=== PATIENT | female | born 1930 | race Caucasian/White ===

== ENCOUNTER 2016-12-11 15:31 | Inpatient (IN) | payer OTHER ==
[~2016-12-11] VITALS: Ht 165.1 cm; Wt 67.1 kg
[~2016-12-11 15:31] MED LIST: ACETAMINOPHEN325 M1 PO; ACIDOPHILUS1 EACH PO; ASPERCREME 1141.7 GM; ASPIRIN EC81 M1 PO; AZITHROMYCIN250 MG PO; BETIMOL10 ML INTRAOCULR; BETIMOL15 ML; BICARSIM80 MG PO; CENTRUM COMPLE1 EACH PO; CENTRUM SILVER1 EAC4 PO; CEPACOL SORE T1 EAC7 PO; CLOBETASOL PROP59 ML; CLOTRIMAZOLE-BE15 GM; DOXYCYCLINE HY100 MG PO; FISH OIL 1,001000 M2 PO; FISHOIL PO; FLAGYL500 MG PO; FLOMAX0.4 MG PO; FLORANEX TABLE1 EACH PO; GLUCOSAMINE CH1 EAC7; HYDROCHLOROTH12.5 M1 PO; HYDROCHLOROTH12.5 MG PO; KLOR-CON 10 ER10 MEQ; LOPERAMIDE 2 MG2 M1 PO; MACROBID 100 M100 M1 PO; MIRALAX17 GM PO; MIRALAX255 GM; MYRBETRIQ25 MG; OS-CAL 500+D C1 EACH PO; PHENERGAN 25 MG25 M1 PO; PREDNISONE 20 M20 MG PO; PRILOSEC40 MG; PROTONIX40 M4 PO; TESSALON PERLE100 MG PO; TRIAMCINOLONE A80 G2 TOP; VALACYCLOVIR500 MG PO; VALIUM5 MG PO; VENTOLIN HFA 1818 GM INH; VITAMIN C120 GM PO; VITAMIN D3400 UNIT PO; ZANTAC 7575 MG PO; ZOCOR 10 MG TAB10 MG PO
[2016-12-11 15:33] VITALS: BP 143/80
[2016-12-11 16:21] LABS: URINE BLOOD 3+ (Negative); URINE COLOR RED; URINE GLUCOSE-RANDOM* NEGATIVE (Negative); URINE KETONES NEGATIVE (Negative); URINE PROTEIN (DIPSTICK) 2+ (Negative); URINE UROBILINOGEN 0.2 E.U./dl (0.2-1.0)
[2016-12-11 16:23] LABS: URINE LEUKOCYTES-REFLEX 2+ (Negative)
[2016-12-11 16:24] LABS: ICTOTEST (BILI CONFIRMATORY) Negative (Negative); URINE BILIRUBIN NEGATIVE (Negative)
[2016-12-11 16:42] LABS: CASTS None Seen /LPF (None Seen); CRYSTALS None Seen /LPF (None Seen); SQUAMOUS 4-10 Moderate /LPF (0-3)
[2016-12-11 16:43] LABS: URINE RBC >20 Many /HPF (0-2); URINE WBC-REFLEX >25 Many /HPF (0-5)
[2016-12-11 17:00] LABS: HEMOGLOBIN 12.4 gm/dL (12.0-15.0); MCH 32.5 pg (26.0-34.0); MCHC 34.5 g/dL (28.0-37.0); MCV 94.2 fL (80.0-100.0); RBC 3.83 mil/uL (4.20-5.00); RDW 12.9 % (10.5-14.5); WBC 8.8 thou/uL (4.0-11.0)
[2016-12-11 17:09] LABS: CREATININE 0.9 mg/dL (0.6-1.0); POTASSIUM 3.7 mmol/L (3.5-5.1)
[2016-12-11 19:38] VITALS: BP 117/67
[2016-12-12 03:35] VITALS: BP 125/53
[2016-12-12 06:38] LABS: HEMATOCRIT 35.6 % (37.0-47.0); HEMOGLOBIN 12.5 gm/dL (12.0-15.0); MCH 32.8 pg (26.0-34.0); MCV 93.8 fL (80.0-100.0); RBC 3.79 mil/uL (4.20-5.00); RDW 13.4 % (10.5-14.5); WBC 5.3 thou/uL (4.0-11.0)
[2016-12-12 06:55] LABS: CREATININE 0.8 mg/dL (0.6-1.0); POTASSIUM 3.4 mmol/L (3.5-5.1)
[2016-12-12 07:17] VITALS: BP 121/58
[2016-12-12 15:31] VITALS: BP 115/72
[2016-12-12 20:14] VITALS: BP 145/57
[2016-12-13 04:35] VITALS: BP 131/51
[2016-12-13 07:54] LABS: CALCIUM 8.5 mg/dL (8.5-10.1); CREATININE 0.8 mg/dL (0.6-1.0); POTASSIUM 3.7 mmol/L (3.5-5.1)
[2016-12-13 08:00] VITALS: BP 153/90
[2016-12-13 15:57] VITALS: BP 127/65
[2016-12-13 20:00] VITALS: BP 140/81
[2016-12-14 03:58] VITALS: BP 146/58
[2016-12-14 08:02] VITALS: BP 163/69
[2016-12-14 20:00] VITALS: BP 141/64
[2016-12-15 04:00] VITALS: BP 137/56
[2016-12-15 07:52] LABS: HEMATOCRIT 36.4 % (37.0-47.0); HEMOGLOBIN 12.7 gm/dL (12.0-15.0); MCH 33.1 pg (26.0-34.0); MCV 94.7 fL (80.0-100.0); RBC 3.85 mil/uL (4.20-5.00); RDW 13.4 % (10.5-14.5); WBC 4.5 thou/uL (4.0-11.0)
[2016-12-15 08:00] VITALS: BP 141/70
[2016-12-15 08:05] LABS: CREATININE 0.8 mg/dL (0.6-1.0); POTASSIUM 3.9 mmol/L (3.5-5.1)
[2016-12-15] MEDS ORDERED: CIPRO500 MG PO (09:39)
[2016-12-15] MEDS ORDERED: COZAAR 25 MG TA25 M1 PO (09:40)
[2016-12-15 13:02] VITALS: BP 141/70
[2016-12-15 14:27] VITALS: BP 141/70
== END 2016-12-15 14:48 | disposition home health service (06) | DRG 690 ==
LOC: ER 15:31 → EROBS 18:26 → 4E 18:26 → ENTRNSPT 12-15 14:41 → EDTRNSPTSTS 12-15 14:46 → 4E 12-15 14:48
PROVIDERS: Emergency Medicine; Internal Medicine
DX: N39.0 Urinary tract infection, site not specified (principal); E87.1 Hypo-osmolality and hyponatremia; E78.00 Pure hypercholesterolemia, unspecified; I10 Essential (primary) hypertension; E78.5 Hyperlipidemia, unspecified; R33.9 Retention of urine, unspecified; R31.9 Hematuria, unspecified; Z88.8 Allergy status to other drugs, medicaments and biological substances; Z90.49 Acquired absence of other specified parts of digestive tract; Z88.2 Allergy status to sulfonamides; Z80.0 Family history of malignant neoplasm of digestive organs; Z79.82 Long term (current) use of aspirin; Z79.899 Other long term (current) drug therapy; Z23 Encounter for immunization
CPT/HCPCS: 10084

== ENCOUNTER 2017-05-06 20:07 | Inpatient (IN) | payer OTHER ==
[~2017-05-06] VITALS: Ht 162.6 cm; Wt 65.8 kg
--- NOTE | ~2017-05-06 | EKG ---
[address] [address] ELECTROCARDIOGRAM REPORT Name: AUGUSTINMYRTLE KHAN DAINA Room #: 406-P ADM IN M.R.#: [id number] Admission: 05/06/17 Attend Phys: Raymundo Hoyt MD Discharge: Date of : 28 Report #: [id number] THIS REPORT FOR: //name// [facility] ED Test Date: 2017-05-06 Test Time: 20:53:10 Pat Name: MYRTLE RUFFIN Department: Room: 406 Gender: F Manager Balance: TAYLER : 1930 Requested By: Ruth Dillon Order Number: [id number] MD: Hiram Marquez Measurements Intervals [place] Rate: 101 P: 68 NV: 138 QRS: 56 QRSD: 88 T: 38 QT: 345 QTc: 448 Interpretive Statements Sinus tachycardia Compared to ECG 04/08/2016 17:02:44 Sinus rhythm no longer present Electronically Signed On 05-07-2017 13:24:01 [employer] SERVICES COORDINATOR by Hiram Marquez [email or web address] <ELECTRONICALLY SIGNED> By: Hiram Marquez MD 05/07/17 1324 52 52 Hiram Marquez MD /KARIN
--- NOTE | ~2017-05-06 | CNG ---
[facility] [place] [address] CYTO-NONGYN REPORT PROCEDURE Name: MYRTLE BUI Room #: 406-P ADM IN M.R.#: [id number] Admission: 05/06/17 Date of : 28 Discharge: Report #: [id number] Path Case #: [id number] CYTOPATHOLOGY REPORT COLLECTION DATE: 05/12/2017 RECEIVED DATE: 05/12/2017 SUBMITTING PHYS: Raymundo Hoyt M.D. OTHER PHYS: Dr. So Melara CLINICAL HISTORY: Sepsis, Pneumonia, Hyponatremia, difficulty coughing up SPECIMEN(S) RECEIVED: A.Sputum * * * * * * * * * * * * FINAL DIAGNOSIS: A. Sputum: - No malignant epithelial cells identified. Pulmonary macrophages, squamous epithelial cells, acute and chronic inflammatory cells and numerous bacterial colonies are present. PATHOLOGIST: Nevaeh Horn M.D. REPORT ELECTRONICALLY SIGNED BY: Nevaeh Horn M.D. DATE/TIME: 05/13/2017 12:58 * * * * * * * * * * * * GROSS PATHOLOGY: A. Sputum: The specimen is submitted unfixed, labeled "Myrtle Bui". Received by the Cytology Department is three mL of cloudy colorless fluid. One ThinPrep slide was prepared. (mm 05.12.2017) LOG YARD MANAGER(S): ADY Ruiz[facility] INITIAL CPT CODE(S): A; 42206 Professional services performed by [facility] at [facility] [address], [place] [address] Technical services performed by [facility] at [address] [place] [address]., [address], Eugenia Pereira, [place] [address]. [facility] [address] [place] [address], [address] [facility] [address] [place] [address] CYTO-NONGYN REPORT PROCEDURE Name: MYRTLE BUIE Room #: 406-P ADM IN M.R.#: [id number] Admission: 05/06/17 Date of : 28 Discharge: Report #: [id number] Path Case #: [id number] [place] Mahm[place] [address] PHONE: [phone] DIRECTOR: Jim Longoria M.D. * * * END OF REPORT * * *
--- NOTE | ~2017-05-06 | HC ---
[facility] [place] [address] CONSULTATION Name: MYRTLE RUFFIN Room #: 406-P ADM IN M.R.#: [id number] Admission: 05/06/17 Attend Phys: Raymundo Hoyt MD Discharge: Date of : 28 Report #: [id number] THIS REPORT FOR: //name// CC: Raymundo Melara TYPE OF REPORT: Infectious diseases consultation. REASON FOR CONSULTATION: I was asked to evaluate the patient concerning bilateral patchy pulmonary infiltrates. HISTORY OF PRESENT ILLNESS: The patient is an 86-year old with underlying history of hypertension. She has an influenza-like syndrome 2 weeks ago. Unclear if she was actually diagnosed with influenza. Treated with Tamiflu. Treated with azithromycin and codeine cough syrup. She continued to have cough with minimal sputum production. She developed fever up to 104 degrees on the day of admission. Chest x-ray showed patchy pulmonary infiltrates. CT scan of the chest confirms the same. She has had no further fever. Treated with Levaquin and metronidazole. REVIEW OF SYSTEMS: The patient has had no chest pain or headache. She has had a hoarse voice. No definite pharyngitis pain. No hemoptysis. No GI or complaints other than a known neurogenic bladder requiring a suprapubic catheter several years ago. No rash. The patient has had no travel. ALLERGIES: SULFA and NITROFURANTOIN. MEDICATIONS: As noted on her MAR, which were reviewed. PAST MEDICAL HISTORY: Autoimmune hepatitis, shingles, left knee arthroscopy, lymphoma, bladder suspension surgery, cholecystectomy, hyponatremia, vertigo, UTI, hypertension, hyperlipidemia, urinary retention with suprapubic catheter. FAMILY HISTORY: Noncontributory. SOCIAL HISTORY: Nonsmoker. No significant alcohol intake. No tuberculosis exposure. 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 REVIEW OF SYSTEMS: As noted above. PHYSICAL EXAMINATION: VITAL SIGNS: Afebrile and hemodynamically stable, alert and cooperative, sitting up in her chair. Room air saturation normal. HEENT: Remarkable for dentures. She had a hoarse voice. NECK: Supple. No adenopathy. LUNGS: Few crackles in the right base posteriorly. No consolidation. HEART: Regular, without murmur. [facility] [address] [place] [address] CONSULTATION Name: MYRTLE RUFFIN Room #: 406-P [facility] IN M.R.#: [id number] Admission: 05/06/17 Attend Phys: Raymundo Hoyt MD Discharge: Date of : 28 Report #: [id number] ABDOMEN: Soft and nontender. No hepatosplenomegaly or mass. EXTREMITIES: Unremarkable other than degenerative arthritis changes. LABORATORY STUDIES: Sodium 135, potassium 3.4, bicarbonate 26 and creatinine 0.7. Liver function test normal. Hemoglobin 10.7; platelet count 315,000; WBC 7 and 70% segs. Differential unremarkable. Urine antigen negative. Viral respiratory panel pending. Urinalysis unremarkable. Urine culture, Enterococcus and pseudomonas, low colony counts. IMPRESSION: Influenza syndrome 2 weeks ago followed by development of laryngitis and patchy pulmonary infiltrates. I am suspecting post-viral pneumonitis. Other consideration would be aspiration. I doubt opportunistic infection. RECOMMENDATIONS: We will continue IV antibiotic therapy with Levaquin. The patient is edentulous. No need for anaerobic coverage. Await sputum culture if possible. Screen for MRSA. Await video swallow. <ELECTRONICALLY SIGNED> By: Abhishek Akins MD 05/13/17 1558 [id number] Abhishek Akins MD /nt
[~2017-05-06 20:07] MED LIST changes: +ANTIVERT25 MG PO; +ASPIR 8181 M1 PO; +BETIMOL5 ML INTRAOCULR; +CALCIUM 500 +1 EAC5 PO; +CENTRUM ADULTS1 EACH PO; +CIPRO500 MG PO; +CLOBETASOL PROP50 M1 TOP; +COZAAR 25 MG TA25 M1 PO; +KEFLEX500 M1 PO; +VITAMIN D1000 UNI1 PO; +VITAMINC500 PO; +ZOCOR20 MG PO
[2017-05-06 20:09] VITALS: BP 165/78
[2017-05-06 21:17] LABS: HEMATOCRIT 34.7 % (37.0-47.0); HEMOGLOBIN 11.8 gm/dL (12.0-15.0); MCH 31.6 pg (26.0-34.0); MCHC 34.1 g/dL (28.0-37.0); MCV 92.6 fL (80.0-100.0); PLATELET COUNT 228 thou/uL (150-400); RBC 3.74 mil/uL (4.20-5.00); RDW 13.4 % (10.5-14.5); WBC 12.4 thou/uL (4.0-11.0)
[2017-05-06 21:24] LABS: ANION GAP 7 mmol/L (7-16); BUN 14 mg/dL (7-18); CALCIUM 8.6 mg/dL (8.5-10.1); CHLORIDE 95 mmol/L (98-107); CO2 26 mmol/L (21-32); CREATININE 0.8 mg/dL (0.6-1.0); GLUCOSE 120 mg/dL (74-106); POTASSIUM 3.6 mmol/L (3.5-5.1); SODIUM 128 mmol/L (136-145)
[2017-05-06 21:28] LABS: URINE BILIRUBIN NEGATIVE (Negative); URINE BLOOD 1+ (Negative); URINE CLARITY CLEAR; URINE COLOR YELLOW; URINE GLUCOSE-RANDOM* NEGATIVE (Negative); URINE KETONES NEGATIVE (Negative); URINE LEUKOCYTES 2+ (Negative); URINE NITRITE NEGATIVE (Negative); URINE PROTEIN (DIPSTICK) NEGATIVE (Negative); URINE SPECIFIC GRAVITY <= 1.005 (1.005-1.035)
[2017-05-06 21:33] LABS: ALBUMIN 2.5 g/dL (3.4-5.0); SGOT 29 U/L (15-37); SGPT 41 U/L (30-65); TOTAL BILIRUBIN 0.8 mg/dL (<0.1-1.0); TOTAL PROTEIN 6.8 g/dL (6.4-8.2); TROPONIN-I < 0.04 ng/mL (<0.06)
[2017-05-06 21:45] LABS: CASTS None Seen /LPF (None Seen); SQUAMOUS None Seen /LPF (0-3)
[2017-05-06 21:46] LABS: BACTERIA None Seen /HPF (None Seen); CRYSTALS None Seen /LPF (None Seen); URINE RBC 0-2 Rare /HPF (0-2); URINE WBC 6-15 Few /HPF (0-5); WBC CLUMPS Few (None Seen)
[2017-05-06 21:47] LABS: ABSOLUTE NEUTROPHILS 10.7 thou/uL (1.4-8.2); ANISOCYTOSIS 1+; POLYCHROMASIA OCCASIONAL
[2017-05-06 22:58] VITALS: BP 142/57
[2017-05-06 23:25] VITALS: BP 143/57
[2017-05-07 04:00] VITALS: BP 122/56
[2017-05-07 06:04] LABS: URINE BILIRUBIN NEGATIVE (Negative); URINE BLOOD 2+ (Negative); URINE CLARITY CLEAR; URINE COLOR YELLOW; URINE GLUCOSE-RANDOM* NEGATIVE (Negative); URINE KETONES TRACE (Negative); URINE NITRITE-REFLEX NEGATIVE (Negative); URINE PROTEIN (DIPSTICK) NEGATIVE (Negative); URINE SPECIFIC GRAVITY <= 1.005 (1.005-1.035); URINE UROBILINOGEN 0.2 E.U./dl (0.2-1.0)
[2017-05-07 06:15] LABS: URINE LEUKOCYTES-REFLEX 2+ (Negative)
[2017-05-07 06:17] LABS: CASTS None Seen /LPF (None Seen); CRYSTALS None Seen /LPF (None Seen); SQUAMOUS None Seen /LPF (0-3); URINE WBC-REFLEX 0-5 Rare /HPF (0-5)
[2017-05-07 06:18] LABS: BACTERIA-REFLEX 1-9 Few /HPF (None Seen); URINE RBC 3-10 Few /HPF (0-2)
[2017-05-07 06:45] LABS: HEMATOCRIT 35.8 % (37.0-47.0); HEMOGLOBIN 12.1 gm/dL (12.0-15.0); MCH 31.6 pg (26.0-34.0); MCHC 33.8 g/dL (28.0-37.0); MCV 93.3 fL (80.0-100.0); RBC 3.84 mil/uL (4.20-5.00); RDW 13.6 % (10.5-14.5); WBC 9.9 thou/uL (4.0-11.0)
[2017-05-07 06:55] LABS: CALCIUM 8.7 mg/dL (8.5-10.1); CREATININE 0.8 mg/dL (0.6-1.0); POTASSIUM 3.5 mmol/L (3.5-5.1)
[2017-05-07 07:52] VITALS: BP 133/57
[2017-05-07 20:11] VITALS: BP 149/76
[2017-05-08 05:17] VITALS: BP 140/67
[2017-05-08 06:43] LABS: ABSOLUTE NEUTROPHILS 11.6 thou/uL (1.4-8.2); BASOPHILS 0.2 % (0.0-2.0); EOSINOPHILS 0.1 % (0.0-3.0); HEMATOCRIT 31.9 % (37.0-47.0); HEMOGLOBIN 10.8 gm/dL (12.0-15.0); LYMPHOCYTES 7.1 % (24.0-44.0); MCH 31.5 pg (26.0-34.0); MCHC 33.7 g/dL (28.0-37.0); MCV 93.3 fL (80.0-100.0); MONOCYTES 5.8 % (1.0-8.0); PLATELET COUNT 227 thou/uL (150-400); POLYS 86.8 % (36.0-66.0); RBC 3.42 mil/uL (4.20-5.00); RDW 13.2 % (10.5-14.5); WBC 13.3 thou/uL (4.0-11.0)
[2017-05-08 07:00] LABS: CALCIUM 8.1 mg/dL (8.5-10.1); CREATININE 0.8 mg/dL (0.6-1.0); PHOSPHORUS 2.7 mg/dL (2.5-4.9); POTASSIUM 3.5 mmol/L (3.5-5.1)
[2017-05-08 09:17] VITALS: BP 158/76
[2017-05-08 17:55] VITALS: BP 167/94
[2017-05-08 20:00] VITALS: BP 187/76
[2017-05-09 04:00] VITALS: BP 126/74
[2017-05-09 06:35] LABS: HEMATOCRIT 32.4 % (37.0-47.0); MCH 31.8 pg (26.0-34.0); MCV 93.4 fL (80.0-100.0); RBC 3.47 mil/uL (4.20-5.00); RDW 13.5 % (10.5-14.5)
[2017-05-09 06:47] LABS: CALCIUM 8.2 mg/dL (8.5-10.1); CREATININE 0.7 mg/dL (0.6-1.0); MAGNESIUM 1.8 mg/dL (1.8-2.4); POTASSIUM 3.5 mmol/L (3.5-5.1)
[2017-05-09 08:29] VITALS: BP 147/92
[2017-05-09 08:31] VITALS: BP 141/68
[2017-05-09 16:27] VITALS: BP 143/73
[2017-05-09 19:56] VITALS: BP 149/85
[2017-05-10 00:02] VITALS: BP 154/83
[2017-05-10 03:39] VITALS: BP 163/78
[2017-05-10 06:36] LABS: BASOPHILS 0.2 % (0.0-2.0); EOSINOPHILS 1.7 % (0.0-3.0); HEMATOCRIT 31.6 % (37.0-47.0); HEMOGLOBIN 10.7 gm/dL (12.0-15.0); LYMPHOCYTES 10.9 % (24.0-44.0); MCH 31.8 pg (26.0-34.0); MCV 93.5 fL (80.0-100.0); MONOCYTES 5.9 % (1.0-8.0); PLATELET COUNT 262 thou/uL (150-400); POLYS 81.3 % (36.0-66.0); RBC 3.38 mil/uL (4.20-5.00); RDW 13.3 % (10.5-14.5); WBC 9.9 thou/uL (4.0-11.0)
[2017-05-10 06:59] LABS: ALBUMIN 1.8 g/dL (3.4-5.0); CREATININE 0.8 mg/dL (0.6-1.0); POTASSIUM 3.1 mmol/L (3.5-5.1); TOTAL BILIRUBIN 0.7 mg/dL (<0.1-1.0); TOTAL PROTEIN 5.7 g/dL (6.4-8.2)
[2017-05-10 08:08] VITALS: BP 135/52
[2017-05-10 16:58] VITALS: BP 146/79
[2017-05-10 20:38] VITALS: BP 151/84
[2017-05-11 05:08] VITALS: BP 154/80
[2017-05-11 05:32] LABS: BASOPHILS 0.5 % (0.0-2.0); EOSINOPHILS 1.7 % (0.0-3.0); HEMATOCRIT 31.1 % (37.0-47.0); HEMOGLOBIN 10.8 gm/dL (12.0-15.0); LYMPHOCYTES 10.4 % (24.0-44.0); MCH 32.5 pg (26.0-34.0); MCHC 34.9 g/dL (28.0-37.0); MONOCYTES 5.7 % (1.0-8.0); PLATELET COUNT 281 thou/uL (150-400); POLYS 81.7 % (36.0-66.0); RBC 3.34 mil/uL (4.20-5.00); RDW 13.3 % (10.5-14.5)
[2017-05-11 05:43] LABS: CREATININE 0.7 mg/dL (0.6-1.0); MAGNESIUM 1.6 mg/dL (1.8-2.4); POTASSIUM 3.1 mmol/L (3.5-5.1)
[2017-05-11 07:43] VITALS: BP 144/55
[2017-05-11 12:09] VITALS: BP 139/67
[2017-05-11 15:00] VITALS: BP 140/72
[2017-05-11 20:00] VITALS: BP 143/55
[2017-05-12 04:00] VITALS: BP 128/64
[2017-05-12 05:53] LABS: ABSOLUTE NEUTROPHILS 4.9 thou/uL (1.4-8.2); BASOPHILS 0.6 % (0.0-2.0); EOSINOPHILS 3.1 % (0.0-3.0); HEMATOCRIT 31.3 % (37.0-47.0); HEMOGLOBIN 10.7 gm/dL (12.0-15.0); LYMPHOCYTES 17.5 % (24.0-44.0); MCH 31.8 pg (26.0-34.0); MCHC 34.3 g/dL (28.0-37.0); MCV 92.6 fL (80.0-100.0); MONOCYTES 8.7 % (1.0-8.0); PLATELET COUNT 315 thou/uL (150-400); POLYS 70.1 % (36.0-66.0); RBC 3.38 mil/uL (4.20-5.00); RDW 13.3 % (10.5-14.5)
[2017-05-12 06:10] LABS: CALCIUM 8.2 mg/dL (8.5-10.1); CREATININE 0.7 mg/dL (0.6-1.0); MAGNESIUM 2.3 mg/dL (1.8-2.4); POTASSIUM 3.4 mmol/L (3.5-5.1)
[2017-05-12 08:48] VITALS: BP 133/67
[2017-05-12 16:58] VITALS: BP 118/57
[2017-05-12 20:00] VITALS: BP 145/62
[2017-05-13 04:00] VITALS: BP 128/63
[2017-05-13 05:52] LABS: ABSOLUTE NEUTROPHILS 3.7 thou/uL (1.4-8.2); BASOPHILS 0.5 % (0.0-2.0); EOSINOPHILS 3.2 % (0.0-3.0); HEMATOCRIT 30.3 % (37.0-47.0); HEMOGLOBIN 10.5 gm/dL (12.0-15.0); LYMPHOCYTES 21.9 % (24.0-44.0); MCH 32.3 pg (26.0-34.0); MCHC 34.8 g/dL (28.0-37.0); MONOCYTES 10.1 % (1.0-8.0); PLATELET COUNT 291 thou/uL (150-400); POLYS 64.3 % (36.0-66.0); RBC 3.26 mil/uL (4.20-5.00); RDW 13.3 % (10.5-14.5); WBC 5.8 thou/uL (4.0-11.0)
[2017-05-13 06:02] LABS: CALCIUM 8.4 mg/dL (8.5-10.1); CREATININE 0.7 mg/dL (0.6-1.0); POTASSIUM 3.3 mmol/L (3.5-5.1)
[2017-05-13 09:20] VITALS: BP 136/54
[2017-05-13 16:41] VITALS: BP 142/82
[2017-05-13 19:48] VITALS: BP 133/48
[2017-05-14 04:00] VITALS: BP 130/57
[2017-05-14 04:32] LABS: BASOPHILS 0.7 % (0.0-2.0); EOSINOPHILS 2.5 % (0.0-3.0); HEMATOCRIT 30.1 % (37.0-47.0); HEMOGLOBIN 10.5 gm/dL (12.0-15.0); LYMPHOCYTES 23.6 % (24.0-44.0); MCH 32.4 pg (26.0-34.0); MCHC 34.8 g/dL (28.0-37.0); MCV 93.1 fL (80.0-100.0); MONOCYTES 11.8 % (1.0-8.0); PLATELET COUNT 286 thou/uL (150-400); POLYS 61.4 % (36.0-66.0); RBC 3.24 mil/uL (4.20-5.00); RDW 13.8 % (10.5-14.5); WBC 4.9 thou/uL (4.0-11.0)
[2017-05-14 04:44] LABS: CALCIUM 8.4 mg/dL (8.5-10.1); CREATININE 0.8 mg/dL (0.6-1.0); POTASSIUM 3.8 mmol/L (3.5-5.1)
[2017-05-14 08:44] VITALS: BP 125/55
[2017-05-14 16:26] VITALS: BP 136/67
[2017-05-14 20:00] VITALS: BP 138/58
[2017-05-15 04:00] VITALS: BP 132/61
[2017-05-15 07:42] VITALS: BP 139/97
[2017-05-15 17:22] VITALS: BP 149/79
[2017-05-15 19:26] VITALS: BP 131/69
[2017-05-16 04:00] VITALS: BP 117/64
[2017-05-16 04:36] LABS: ABSOLUTE NEUTROPHILS 3.1 thou/uL (1.4-8.2); BASOPHILS 1.1 % (0.0-2.0); EOSINOPHILS 2.6 % (0.0-3.0); HEMATOCRIT 32.3 % (37.0-47.0); HEMOGLOBIN 11.2 gm/dL (12.0-15.0); LYMPHOCYTES 25.5 % (24.0-44.0); MCH 32.3 pg (26.0-34.0); MCHC 34.6 g/dL (28.0-37.0); MCV 93.3 fL (80.0-100.0); MONOCYTES 10.6 % (1.0-8.0); PLATELET COUNT 328 thou/uL (150-400); POLYS 60.2 % (36.0-66.0); RBC 3.46 mil/uL (4.20-5.00); RDW 13.6 % (10.5-14.5); WBC 5.2 thou/uL (4.0-11.0)
[2017-05-16 04:59] LABS: CALCIUM 8.8 mg/dL (8.5-10.1); CREATININE 0.8 mg/dL (0.6-1.0); POTASSIUM 4.8 mmol/L (3.5-5.1)
[2017-05-16 08:51] VITALS: BP 111/50
[2017-05-16 12:16] VITALS: BP 111/50
[2017-05-16] MEDS ORDERED: LEVAQUIN 500 M500 M1 PO (17:30)
[2017-05-16 18:03] VITALS: BP 130/69
[2017-05-17 00:06] LABS: ADENOVIRUS Negative (Negative); INFLUENZA A Negative (Negative); INFLUENZA B Negative (Negative); METAPNEUMOVIRUS Negative (Negative); PARAINFLUENZA 1 Negative (Negative); PARAINFLUENZA 2 Negative (Negative); PARAINFLUENZA 3 Negative (Negative); RHINOVIRUS Negative (Negative); RSV A Negative (Negative); RSV B Negative (Negative)
== END 2017-05-16 19:30 | disposition home health service (06) | DRG 871 ==
LOC: ER 20:07 → 4N 22:28 → EROBS 22:28 → 4N 22:57
PROVIDERS: Hospitalist; Internal Medicine; Internal Medicine Pulmonary Disease; Nurse Practitioner Family
DX: A41.9 Sepsis, unspecified organism (principal); J18.1 Lobar pneumonia, unspecified organism; J11.00 Influenza due to unidentified influenza virus with unspecified type of pneumonia; N39.0 Urinary tract infection, site not specified; E87.1 Hypo-osmolality and hyponatremia; J98.11 Atelectasis; E78.5 Hyperlipidemia, unspecified; R33.9 Retention of urine, unspecified; K21.9 Gastro-esophageal reflux disease without esophagitis; I10 Essential (primary) hypertension; J98.8 Other specified respiratory disorders; R49.0 Dysphonia; J04.0 Acute laryngitis; R19.7 Diarrhea, unspecified; J20.8 Acute bronchitis due to other specified organisms; Z88.2 Allergy status to sulfonamides; Z88.8 Allergy status to other drugs, medicaments and biological substances; Z87.891 Personal history of nicotine dependence; Z90.49 Acquired absence of other specified parts of digestive tract; Z80.0 Family history of malignant neoplasm of digestive organs
CPT/HCPCS: 10790

== ENCOUNTER → 2017-05-30 | Outpatient (CLI) | payer OTHER ==
[~2017-05-30] MED LIST changes: +LEVAQUIN 500 M500 M1 PO
== END ==
LOC: RAD 10:02
DX: J69.0 Pneumonitis due to inhalation of food and vomit (principal); R91.8 Other nonspecific abnormal finding of lung field

== ENCOUNTER → 2017-06-14 | Outpatient (CLI) | payer OTHER | LOC: RAD 09:57 | DX: J69.0 Pneumonitis due to inhalation of food and vomit (principal) ==

== ENCOUNTER 2017-09-21 19:26 | Emergency (ER) | payer OTHER ==
[~2017-09-21] VITALS: Ht 165.1 cm; Wt 67.6 kg
[2017-09-21 20:09] LABS: URINE BILIRUBIN NEGATIVE (Negative); URINE BLOOD 2+ (Negative); URINE CLARITY SL CLOUDY; URINE COLOR YELLOW; URINE GLUCOSE-RANDOM* NEGATIVE (Negative); URINE KETONES NEGATIVE (Negative); URINE NITRITE-REFLEX NEGATIVE (Negative); URINE PROTEIN (DIPSTICK) NEGATIVE (Negative); URINE SPECIFIC GRAVITY <= 1.005 (1.005-1.035); URINE UROBILINOGEN 0.2 E.U./dl (0.2-1.0)
[2017-09-21 20:14] LABS: URINE LEUKOCYTES-REFLEX 3+ (Negative)
[2017-09-21 20:20] LABS: ABSOLUTE NEUTROPHILS 5.3 thou/uL (1.4-8.2); BASOPHILS 0.6 % (0.0-2.0); EOSINOPHILS 2.6 % (0.0-3.0); HEMATOCRIT 36.3 % (37.0-47.0); HEMOGLOBIN 12.7 gm/dL (12.0-15.0); MCH 32.9 pg (26.0-34.0); MCHC 34.9 g/dL (28.0-37.0); MCV 94.3 fL (80.0-100.0); MONOCYTES 7.6 % (1.0-8.0); PLATELET COUNT 226 thou/uL (150-400); POLYS 70.2 % (36.0-66.0); RBC 3.84 mil/uL (4.20-5.00); RDW 13.1 % (10.5-14.5); WBC 7.5 thou/uL (4.0-11.0)
[2017-09-21 20:24] LABS: BACTERIA-REFLEX 1-9 Few /HPF (None Seen); CASTS None Seen /LPF (None Seen); CRYSTALS None Seen /LPF (None Seen); SQUAMOUS None Seen /LPF (0-3); URINE RBC 3-10 Few /HPF (0-2); URINE WBC-REFLEX >25 Many /HPF (0-5)
[2017-09-21 20:30] LABS: CALCIUM 8.9 mg/dL (8.5-10.1); CREATININE 1.2 mg/dL (0.6-1.0); POTASSIUM 4.1 mmol/L (3.5-5.1)
[2017-09-21 20:36] LABS: ALBUMIN 3.6 g/dL (3.4-5.0); TOTAL BILIRUBIN 0.3 mg/dL (<0.1-1.0); TOTAL PROTEIN 7.6 g/dL (6.4-8.2)
[2017-09-21 21:44] VITALS: BP 152/79
== END 2017-09-21 21:45 | disposition home or self-care (01) ==
LOC: ER 19:26
PROVIDERS: Physician Assistant
DX: K62.5 Hemorrhage of anus and rectum (principal); R10.9 Unspecified abdominal pain; E78.5 Hyperlipidemia, unspecified; I10 Essential (primary) hypertension; Z90.49 Acquired absence of other specified parts of digestive tract; Z85.72 Personal history of non-Hodgkin lymphomas; Z88.2 Allergy status to sulfonamides; Z88.8 Allergy status to other drugs, medicaments and biological substances

== ENCOUNTER → 2018-01-19 | Outpatient (CLI) | payer OTHER | LOC: RAD 01:48 | DX: Z12.31 Encounter for screening mammogram for malignant neoplasm of breast (principal) ==

== ENCOUNTER 2018-07-04 20:01 | Emergency (ER) | payer OTHER ==
[~2018-07-04] VITALS: Ht 165.1 cm; Wt 70.3 kg
[2018-07-04 20:41] LABS: HEMATOCRIT 36.7 % (37.0-47.0); HEMOGLOBIN 12.9 gm/dL (12.0-15.0); MCH 33.2 pg (26.0-34.0); MCHC 35.3 g/dL (28.0-37.0); PLATELET COUNT 170 thou/uL (150-400); RDW 13.4 % (10.5-14.5); WBC 4.6 thou/uL (4.0-11.0)
[2018-07-04 20:49] LABS: ANION GAP 9 mmol/L (7-16); BUN 12 mg/dL (7-18); CALCIUM 9.3 mg/dL (8.5-10.1); CHLORIDE 91 mmol/L (98-107); CO2 27 mmol/L (21-32); CREATININE 0.9 mg/dL (0.6-1.0); GLUCOSE 106 mg/dL (74-106); POTASSIUM 3.6 mmol/L (3.5-5.1); SODIUM 127 mmol/L (136-145)
[2018-07-04 20:59] LABS: ALBUMIN 3.8 g/dL (3.4-5.0); SGOT 25 U/L (15-37); SGPT 24 U/L (30-65); TOTAL BILIRUBIN 0.8 mg/dL (<0.1-1.0); TOTAL PROTEIN 7.7 g/dL (6.4-8.2); TROPONIN-I <0.06 ng/mL (<0.06)
[2018-07-04 22:18] LABS: ABSOLUTE NEUTROPHILS 3.2 thou/uL (1.4-8.2)
[2018-07-04 22:19] LABS: PLATELET ESTIMATE NORMAL
[2018-07-04 22:34] LABS: URINE BILIRUBIN NEGATIVE (Negative); URINE BLOOD 2+ (Negative); URINE CLARITY CLEAR; URINE COLOR YELLOW; URINE GLUCOSE-RANDOM* NEGATIVE (Negative); URINE KETONES TRACE (Negative); URINE LEUKOCYTES 3+ (Negative); URINE NITRITE POSITIVE (Negative); URINE PROTEIN (DIPSTICK) NEGATIVE (Negative); URINE UROBILINOGEN 0.2 E.U./dl (0.2-1.0)
[2018-07-04 22:47] LABS: BACTERIA 1-9 Few /HPF (None Seen); CASTS None Seen /LPF (None Seen); CRYSTALS None Seen /LPF (None Seen); MUCUS 0-3 Light strn/LPF (None Seen); SQUAMOUS 0-3 Few /LPF (0-3); URINE RBC 3-10 Few /HPF (0-2); WBC CLUMPS Moderate (None Seen)
[2018-07-04] MEDS ORDERED: TESSALON PERLE100 MG PO (22:57)
[2018-07-04] MEDS ORDERED: LEVAQUIN 500 M500 M1 PO (22:57)
[2018-07-04 23:01] VITALS: BP 167/66
[2018-07-04] MEDS ORDERED: LEVAQUIN 500 M500 M3 PO (23:04)
--- NOTE | 2018-07-05 08:00 | EKG ---
[address] [address] ELECTROCARDIOGRAM REPORT Name: MYRTLE RUFFIN [facility] [id number] ������������������ Admission: 07/04/18 ������������������ Attend Phys: Discharge: 07/04/18 ������������������ Date of : 28 Report #: [id number] ����������������������������������������������������������������� [id number] THIS REPORT FOR: //name// [facility] ED Test Date: 2018-07-04 Test Time: 20:31:48 Pat Name: MYRTLE RUFFIN Department: Room: Gender: F Driver License Reviewing Officer: KMD : 1930 Requested By: Moe Goel Order Number: [id number] MD: Hiram Marquez Measurements Intervals [place] Rate: 101 P: 59 CO: 136 QRS: 52 QRSD: 80 T: 42 QT: 333 QTc: 432 Interpretive Statements Sinus tachycardia Compared to ECG 05/06/2017 20:53:10 No significant changes Electronically Signed On 07-05-2018 8:00:09 CDT by Hiram Marquez [email or web address] ��������������������������������������������� <ELECTRONICALLY SIGNED> ���������������������������������������� By: Hiram Marquez MD ��������������������������������������������� 07/05/18 08 30 30 Hiram Marquez MD /KARIN
== END 2018-07-04 23:21 | disposition home or self-care (01) ==
LOC: ER 20:01
PROVIDERS: Emergency Medicine
DX: N39.0 Urinary tract infection, site not specified (principal); J20.9 Acute bronchitis, unspecified; R19.7 Diarrhea, unspecified; Z88.2 Allergy status to sulfonamides; Z88.8 Allergy status to other drugs, medicaments and biological substances; Z87.891 Personal history of nicotine dependence

== ENCOUNTER 2018-07-12 17:08 | Emergency (ER) | payer OTHER ==
[~2018-07-12] VITALS: Ht 157.5 cm; Wt 65.8 kg
[~2018-07-12 17:08] MED LIST changes: +LEVAQUIN 500 M500 M3 PO
[2018-07-12 19:20] LABS: EOSINOPHILS 4.3 % (0.0-3.0); HEMOGLOBIN 13.1 gm/dL (12.0-15.0); LYMPHOCYTES 24.8 % (24.0-44.0); MCH 32.9 pg (26.0-34.0); MCHC 34.6 g/dL (28.0-37.0); MCV 95.1 fL (80.0-100.0); MONOCYTES 7.7 % (1.0-8.0); PLATELET COUNT 244 thou/uL (150-400); POLYS 62.2 % (36.0-66.0); RBC 3.99 mil/uL (4.20-5.00); RDW 13.2 % (10.5-14.5); WBC 6.4 thou/uL (4.0-11.0)
[2018-07-12 19:27] LABS: ANION GAP 10 mmol/L (7-16); BUN 14 mg/dL (7-18); CALCIUM 9.5 mg/dL (8.5-10.1); CHLORIDE 96 mmol/L (98-107); CO2 25 mmol/L (21-32); CREATININE 0.8 mg/dL (0.6-1.0); GLUCOSE 112 mg/dL (74-106); POTASSIUM 4.4 mmol/L (3.5-5.1); SODIUM 131 mmol/L (136-145)
[2018-07-12 19:30] LABS: APTT 25.9 Seconds (24.5-32.8); PROTIME 10.5 Seconds (9.3-11.4)
[2018-07-12 19:37] LABS: ALBUMIN 3.6 g/dL (3.4-5.0); MAGNESIUM 2.2 mg/dL (1.8-2.4); SGOT 30 U/L (15-37); SGPT 21 U/L (30-65); TOTAL BILIRUBIN 0.5 mg/dL (<0.1-1.0); TOTAL PROTEIN 7.5 g/dL (6.4-8.2); TROPONIN-I <0.06 ng/mL (<0.06)
[2018-07-12] MEDS ORDERED: PREDNISONE 20 M20 MG PO (19:51)
[2018-07-12] MEDS ORDERED: TRAMADOL 50 MG50 MG PO (19:51)
[2018-07-12] MEDS ORDERED: AUGMENTIN 875-1 EACH PO (19:51)
[2018-07-12] MEDS ORDERED: TESSALON PERLE100 MG PO (19:51)
[2018-07-12] MEDS ORDERED: GUAIFENESIN AC473 ML PO (20:15)
[2018-07-12 20:52] VITALS: BP 121/56
--- NOTE | 2018-07-13 08:01 | EKG ---
[place] [address] [facility] [place] [address] ELECTROCARDIOGRAM REPORT Name: MYRTLE RUFFIN [facility] [id number] ������������������ Admission: 07/12/18 ������������������ Attend Phys: Discharge: 07/12/18 ������������������ Date of : 28 Report #: [id number] ����������������������������������������������������������������� [id number] THIS REPORT FOR: //name// [facility] ED Test Date: 2018-07-12 Test Time: 18:53:32 Pat Name: MYRTLE RUFFIN Department: Room: Gender: F Straightener And Aligner: Deangelo GARLAND : 1930 Requested By: Abhishek Scales Order Number: [id number] MD: Rusty Ariza Measurements Intervals [place] Rate: 88 P: 18 WV: 150 QRS: 53 QRSD: 80 T: 49 QT: 371 QTc: 449 Interpretive Statements Sinus rhythm Paired ventricular premature complexes Baseline wander in lead(s) II,III,aVF Compared to ECG 07/04/2018 20:31:48 Ventricular premature complex(es) now present Sinus tachycardia no longer present Electronically Signed On 07-13-2018 8:01:08 CDT by Rusty Ariza [email or web address] ��������������������������������������������� <ELECTRONICALLY SIGNED> ���������������������������������������� By: Rusty Ariza MD, [facility] ��������������������������������������������� 07/13/18 0801 185 185 Rusty Ariza MD, [facility] /EPI
== END 2018-07-12 20:52 | disposition home or self-care (01) ==
LOC: ER 17:08
PROVIDERS: Emergency Medicine
DX: J20.9 Acute bronchitis, unspecified (principal); I10 Essential (primary) hypertension; R07.89 Other chest pain; R06.00 Dyspnea, unspecified; Z88.2 Allergy status to sulfonamides; Z88.8 Allergy status to other drugs, medicaments and biological substances

== ENCOUNTER 2019-02-10 21:05 | Emergency (ER) | payer OTHER ==
[~2019-02-10] VITALS: Ht 165.1 cm; Wt 68.0 kg
[~2019-02-10 21:05] MED LIST changes: +AUGMENTIN 875-1 EACH PO; +GUAIFENESIN AC473 ML PO; +PREMARIN30 GM VAG; +TRAMADOL 50 MG50 MG PO
[2019-02-10 22:11] LABS: URINE BILIRUBIN NEGATIVE (Negative); URINE BLOOD 2+ (Negative); URINE CLARITY CLEAR; URINE COLOR YELLOW; URINE GLUCOSE-RANDOM* NEGATIVE (Negative); URINE KETONES NEGATIVE (Negative); URINE PROTEIN (DIPSTICK) NEGATIVE (Negative); URINE SPECIFIC GRAVITY <= 1.005 (1.005-1.035); URINE UROBILINOGEN 0.2 E.U./dl (0.2-1.0)
[2019-02-10 22:12] LABS: URINE LEUKOCYTES-REFLEX 3+ (Negative); URINE NITRITE-REFLEX POSITIVE (Negative)
[2019-02-10 22:21] LABS: CASTS None Seen /LPF (None Seen); CRYSTALS None Seen /LPF (None Seen); MUCUS None Seen strn/LPF (None Seen); SQUAMOUS None Seen /LPF (0-3); URINE RBC 0-2 Rare /HPF (0-2); WBC CLUMPS Moderate (None Seen)
[2019-02-11] MEDS ORDERED: KEFLEX500 M1 PO (00:04)
[2019-02-11 00:27] VITALS: BP 145/69
== END 2019-02-11 03:00 | disposition home or self-care (01) ==
LOC: ER 21:05
PROVIDERS: Physician Assistant
DX: N95.2 Postmenopausal atrophic vaginitis (principal); N39.0 Urinary tract infection, site not specified; Z88.2 Allergy status to sulfonamides; Z88.1 Allergy status to other antibiotic agents